=== PATIENT | female | born 1995 | race Caucasian/White ===

== ENCOUNTER 2018-03-05 08:51 | Observation (INO) | payer BC ==
[~2018-03-05] VITALS: Ht 172.7 cm; Wt 85.0 kg
[2018-03-05 08:58] VITALS: BP 122/65; PULSE 84; RESP 18; TEMP 98.1; O2SAT 97
--- NOTE | 2018-03-05 09:14 | PD ---
HPI Chief Complaint: Seizure Time Seen by Provider: 09:03 Travel History International Travel<30 days: No Contact w/Intl Traveler<30days: No Traveled to known affect area: No History of Present Illness HPI 23-year-old female presents with a witnessed tonic-clonic seizure that lasted a couple minutes per her boyfriend where she shook all over this morning at 7 AM. The patient states she does not recall any of the episode. She states about a year ago she had a seizure where she was evaluated in [place] but they did not start her on any medications and she states she did not stay in the hospital. She states she is not on any seizure medicine history is limited as patient does not recall episode but boyfriend is able to tell me she moved her arms and her legs and was less interactive after the episode. FORMERLY [facility], [facility] Past Medical History Narrative Medical 1 prior seizure, migraines ?: Not LMP: 02/07/18 Past Surgical History Surgical History: No Previous Surgery Social History Alcohol Use: No Tobacco Use: No Substance Use: Yes (Marijuana) Allergies-Medications (Allergen,Severity, Reaction): Coded Allergies: No Known Allergies (Verified Allergy, Unknown, 03/05/18) Reported Meds & Prescriptions Reported Meds & Active Scripts Active No Active Prescriptions or Reported Medications Review of Systems Except as stated in HPI: all other systems reviewed are Neg Physical Exam Narrative GENERAL: 23-year-old female in no apparent distress SKIN: Focused skin assessment warm/dry. HEAD: Atraumatic. Normocephalic. EYES: Pupils equal and round. No scleral icterus. No injection or drainage. ENT: No nasal bleeding or discharge. Mucous membranes pink and moist. NECK: Trachea midline. No JVD. CARDIOVASCULAR: Regular rate and rhythm. No murmur appreciated. RESPIRATORY: No accessory muscle use. Clear to auscultation. Breath sounds equal bilaterally. GASTROINTESTINAL: Abdomen soft, non-tender, nondistended. MUSCULOSKELETAL: No obvious deformities. No clubbing. No cyanosis. No edema. NEUROLOGICAL: Awake and alert. No obvious cranial nerve deficits. Motor grossly within normal limits. Normal speech. PSYCHIATRIC: Appropriate mood and affect; insight and judgment normal. Data Data Last Documented VS Vital Signs Date Time Temp Pulse Resp B/P (MAP) Pulse Ox O2 Delivery O2 Flow Rate FiO2 03/05/18 09:04 73 18 97 Room Air 03/05/18 08:58 98.1 122/65 (84) Orders Orders Complete Blood Count With Diff (03/05/18 09:09) Alcohol (Ethanol) (03/05/18 09:09) Drug Screen, Random Urine (03/05/18 09:09) Electrocardiogram (03/05/18 ) Ct Brain W/O Iv Contrast(Rout) (03/05/18 ) Ecg Monitoring (03/05/18 09:09) Iv Access Insert/Monitor (03/05/18 09:09) Oximetry (03/05/18 09:09) Comprehensive Metabolic Panel (03/05/18 09:09) Sodium Chloride 0.9% Flush (Ns Flush) (03/05/18 09:15) Urinalysis - C+S If Indicated (03/05/18 09:09) Lorazepam Inj (Ativan Inj) (03/05/18 10:45) Fosphenytoin Inj (Cerebyx Inj) (03/05/18 10:45) Admit Order (Ed Use Only) (03/05/18 11:12) Labs Laboratory Tests Test 03/05/18 09:10 White Blood Count 7.2 TH/MM3 Red Blood Count 4.22 MIL/MM3 Hemoglobin 13.5 GM/DL Hematocrit 38.9 % Mean Corpuscular Volume 92.3 FL Mean Corpuscular Hemoglobin 31.9 PG Mean Corpuscular Hemoglobin Concent 34.6 % Red Cell Distribution Width 12.7 % Platelet Count 203 TH/MM3 Mean Platelet Volume 8.9 FL Neutrophils (%) (Auto) 66.8 % Lymphocytes (%) (Auto) 21.6 % Monocytes (%) (Auto) 8.1 % Eosinophils (%) (Auto) 2.8 % Basophils (%) (Auto) 0.7 % Neutrophils # (Auto) 4.8 TH/MM3 Lymphocytes # (Auto) 1.5 TH/MM3 Monocytes # (Auto) 0.6 TH/MM3 Eosinophils # (Auto) 0.2 TH/MM3 Basophils # (Auto) 0.1 TH/MM3 CBC Comment DIFF FINAL Differential Comment Blood Urea Nitrogen 11 MG/DL Creatinine 0.87 MG/DL Random Glucose 108 MG/DL Total Protein 7.1 GM/DL Albumin 4.0 GM/DL Calcium Level 8.8 MG/DL Alkaline Phosphatase 40 U/L Aspartate Amino Transf (AST/SGOT) 19 U/L Alanine Aminotransferase (ALT/SGPT) 20 U/L Total Bilirubin 0.8 MG/DL Sodium Level 139 MEQ/L Potassium Level 4.1 MEQ/L Chloride Level 107 MEQ/L Carbon Dioxide Level 20.4 MEQ/L Anion Gap 12 MEQ/L Estimat Glomerular Filtration Rate 81 ML/MIN Ethyl Alcohol Level LESS THAN 3 MG/DL MDM Medical Decision Making Medical Screen Exam Complete: Yes Emergency Medical Condition: Yes Medical Record Reviewed: Yes (Past history confirmed) Interpretation(s) CBC & BMP Diagram 03/05/18 09:10 Total Protein 7.1, Albumin 4.0, Calcium Level 8.8, Alkaline Phosphatase 40 L, Aspartate Amino Transf (AST/SGOT) 19, Alanine Aminotransferase (ALT/SGPT) 20, Total Bilirubin 0.8 Last [address] 03/05/18 0000 Signed Impressions: CONCLUSION: 1. Negative CT Head non contrast. Differential Diagnosis Intracranial, electrolyte abnormality, seizure disorder Narrative Course Will check blood work, imaging and discuss with neurology as second episode she will likely need to be started on seizure medication and need more testing Patient had witnessed tonic-clonic seizure here. She was given 1 mg of Ativan as when we got in the room the seizure had stopped. She will also be loaded with Cerebyx and admitted for further care. Physician Communication Physician Communication dr moore agrees to admit dr estrada states ok with loading with cerebyx and giving ativan, will follow, states needs mri and eeg Diagnosis Primary Impression: Seizure Admitting Information Admitting Physician Requests: Observation Scripts No Active Prescriptions or Reported Meds Emani Duong MD Mar 05, 2018 09:14
[2018-03-05] MEDS ORDERED: SODIUM CHLORIDE 0.9% FLUSH 10 ML FLUSH IVF PRN (09:15)
[2018-03-05 09:33] LABS: AUTOMATED NEUTROPHIL # 4.8 TH/MM3 (1.8-7.7); BASOPHIL # 0.1 TH/MM3 (0-0.2); BASOPHIL % 0.7 % (0.0-2.0); EOSINOPHIL # 0.2 TH/MM3 (0-0.4); EOSINOPHIL % 2.8 % (0.0-4.0); HEMATOCRIT 38.9 % (35.0-46.0); HEMOGLOBIN 13.5 GM/DL (11.6-15.3); LYMPH % 21.6 % (9.0-44.0); LYMPHOCYTE # 1.5 TH/MM3 (1.0-4.8); MEAN CELL VOLUME 92.3 FL (80.0-100.0); MEAN CORPUSCULAR HEMOGLOBIN 31.9 PG (27.0-34.0); MEAN CORPUSCULAR HGB CONC 34.6 % (32.0-36.0); MEAN PLATELET VOLUME 8.9 FL (7.0-11.0); MONO % 8.1 % (0.0-8.0); MONOCYTE # 0.6 TH/MM3 (0-0.9); NEUT % 66.8 % (16.0-70.0); PLATELET COUNT 203 TH/MM3 (150-450); RED BLOOD COUNT 4.22 MIL/MM3 (4.00-5.30); RED CELL DISTRIBUTION WIDTH 12.7 % (11.6-17.2); WHITE BLOOD COUNT 7.2 TH/MM3 (4.0-11.0)
[2018-03-05 09:50] LABS: AST (GOT) 19 U/L (15-37); BICARBONATE 20.4 MEQ/L (21.0-32.0); BLOOD UREA NITROGEN 11 MG/DL (7-18); CALCIUM 8.8 MG/DL (8.5-10.1); CHLORIDE 107 MEQ/L (98-107); CREATININE 0.87 MG/DL (0.50-1.00); GLOMERULAR FILTRATION RATE 81 ML/MIN (>89); GLUCOSE,RANDOM 108 MG/DL (74-106); SODIUM (NA) 139 MEQ/L (136-145)
[2018-03-05 09:51] LABS: ALT (GPT) 20 U/L (10-53)
--- NOTE | 2018-03-05 09:53 | RADRPT ---
EXAM DATE: 03/05/2018 9:50 AM EDT AGE/SEX: 23 years / Female INDICATIONS: Possible seizure today. CLINICAL DATA: This is the patient's initial encounter. Patient reports that signs and symptoms have been present for 1 day and indicates a pain score of 0/10. MEDICAL/SURGICAL HISTORY: None. None. RADIATION DOSE: 56.35 CTDI (mGy) COMPARISON: No prior [place] exams available for comparison. TECHNIQUE: CT of the head without contrast. Using automated exposure control and adjustment of the mA and/or kV according to patient size, radiation dose was kept as low as reasonably achievable to ob tain optimal diagnostic quality images. FINDINGS: Cerebrum: The ventricles are normal for age. No evidence of midline shift, mass lesion, hemorrhage or acute infarction. No extraaxial fluid collections are seen. Posterior Fossa: The cerebellum and brainstem are intact. The 4th ventricle is midline. The cerebe llopontine angle is unremarkable. Extracranial: The visualized portion of the orbits is intact. Skull: The calvaria is intact. No evidence of skull fracture. CONCLUSION: 1. Negative CT Head non contrast. Electronically signed by: Jose Daniel MD 03/05/2018 9:51 AM EDT
[2018-03-05 09:54] LABS: ALKALINE PHOSPHATASE 40 U/L (45-117); TOTAL BILIRUBIN ADULT 0.8 MG/DL (0.2-1.0); TOTAL PROTEIN 7.1 GM/DL (6.4-8.2)
[2018-03-05] MEDS ORDERED: FOSPHENYTOIN INJ 1,000 MGPE in SODIUM CHLORIDE 0.9% INJ 50 ML IV ONE (10:45)
[2018-03-05] MEDS ORDERED: LORazepam 2 MG/ML VIAL IV PUSH ONE (10:45)
[2018-03-05] MEDS ORDERED: GADODIAMIDE PF 287 MG/ML 20 ML VIAL (for RAD MRI) IVCONTRAST ONE ×4 (11:15)
[2018-03-05] MEDS ORDERED: LORazepam 2 MG/ML VIAL IV PUSH PRN (11:45)
--- NOTE | 2018-03-05 11:53 | HHI.HP ---
[facility] Primary Care Physician No Primary Care Physician Admission Diagnosis seizure Diagnoses: (1) Seizure Diagnosis: Principal Chief Complaint: seizures Travel History International Travel<30 Days: No Contact w/Intl Traveler <30 Da: No Traveled to Known Affected Are: No History of Present Illness patient is a 23 y/o female who presented to ER after she had a seizure this morning. she says that she had a seizure last year. she went to the hospital but she wasn't started on any medications. she says that she doesn't recall the incident but her boyfriend who witnesses the seizure says that this morning she suddenly started to have shaking of the whole body which lasted for a couple of minutes.she says that she probably bit her tongue but there was no urine incontinence. while she was being evaluated in ER she had one more episode of seizure for which she received a dose of ativan. at the time of my evaluation she was awake, alert with no significant complaints. Review of Systems Constitutional: DENIES: Fever, Weight loss, Chills, Night Sweats Eyes: DENIES: Blurred vision, Diplopia, Vision loss, Double Vision Ears, nose, mouth, throat: DENIES: Tinnitus, Vertigo, Throat pain, Epistaxis Respiratory: DENIES: Apneas, Cough, Snoring, Wheezing, Hemoptysis, Sputum production, Shortness of breath Cardiovascular: DENIES: Chest pain, Palpitations, Syncope, Dyspnea on Exertion , PND, Lower Extremity Edema, Orthopnea, Claudication Gastrointestinal: DENIES: Abdominal pain, Black stools, Bloody stools, Constipation, Diarrhea, Nausea, Vomiting, Difficulty Swallowing, Anorexia Genitourinary: DENIES: Urinary frequency, Urgency, Hematuria, Dysuria Musculoskeletal: DENIES: Joint pain, Muscle aches, Stiffness, Joint Swelling Integumentary: DENIES: Rash Neurologic: COMPLAINS OF: Seizures, DENIES: Abnormal gait, Headache, Localized weakness, Paresthesias, Speech Problems, Tremor, Poor Balance Psychiatric: DENIES: Anxiety, Confusion, Mood changes, Depression, Hallucinations, Agitation, Suicidal Ideation, Homicidal Ideation, Delusions Past Family Social History Past Medical History seizure Past Surgical History none reported. Reported Medications none. Allergies: Coded Allergies: No Known Allergies (Verified Allergy, Unknown, 03/05/18) Active Ordered Medications Inpatient Medications Fosphenytoin Sodium 1000 mgpe/ Sodium Chloride 70 ml @ 280 mls/hr ONCE ONCE IV Last administered on 03/05/18at 11:02; Start 03/05/18 at 10:45; Stop 03/05/18 at 10:59; Status DC Lorazepam (Ativan Inj) 1 mg ONCE ONCE IV PUSH Last administered on 03/05/18at 10 :59; Start 03/05/18 at 10:45; Stop 03/05/18 at 10:46; Status DC Sodium Chloride (NS Flush) 2 ml UNSCH PRN IVF FLUSH AFTER USING IV ACCESS; Start 03/05/18 at 09:15 Family History no seizure in the family. Social History smokes weed- drinks occasionally. Physical Exam Vital Signs Vital Signs Date Time Temp Pulse Resp B/P (MAP) Pulse Ox O2 Delivery O2 Flow Rate FiO2 03/05/18 09:04 73 18 97 Room Air 03/05/18 08:58 98.1 84 18 122/65 (84) 97 Physical Exam GENERAL: This is a well-nourished, well-developed patient, in no apparent distress. SKIN: No rashes, ecchymoses or lesions. Cool and dry. HEAD: Atraumatic. Normocephalic. No temporal or scalp tenderness. EYES: Pupils equal round and reactive. Extraocular motions intact. No scleral icterus. No injection or drainage. ENT: Nose without bleeding, purulent drainage or septal hematoma. Throat without erythema, tonsillar hypertrophy or exudate. Uvula midline. Airway patent. NECK: Trachea midline. No JVD or lymphadenopathy. Supple, nontender, no meningeal signs. CARDIOVASCULAR: Regular rate and rhythm without murmurs, gallops, or rubs. RESPIRATORY: Clear to auscultation. Breath sounds equal bilaterally. No wheezes , rales, or rhonchi. GASTROINTESTINAL: Abdomen soft, non-tender, nondistended. No hepato-splenomegaly , or palpable masses. No guarding. MUSCULOSKELETAL: Extremities without clubbing, cyanosis, or edema. No joint tenderness, effusion, or edema noted. No calf tenderness. Negative Homans sign bilaterally. NEUROLOGICAL: Awake and alert. Cranial nerves II through XII intact. Motor and sensory grossly within normal limits. Five out of 5 muscle strength in all muscle groups. Normal speech. Laboratory Laboratory Tests Test 03/05/18 09:10 White Blood Count 7.2 Red Blood Count 4.22 Hemoglobin 13.5 Hematocrit 38.9 Mean Corpuscular Volume 92.3 Mean Corpuscular Hemoglobin 31.9 Mean Corpuscular Hemoglobin Concent 34.6 Red Cell Distribution Width 12.7 Platelet Count 203 Mean Platelet Volume 8.9 Neutrophils (%) (Auto) 66.8 Lymphocytes (%) (Auto) 21.6 Monocytes (%) (Auto) 8.1 Eosinophils (%) (Auto) 2.8 Basophils (%) (Auto) 0.7 Neutrophils # (Auto) 4.8 Lymphocytes # (Auto) 1.5 Monocytes # (Auto) 0.6 Eosinophils # (Auto) 0.2 Basophils # (Auto) 0.1 CBC Comment DIFF FINAL Differential Comment Blood Urea Nitrogen 11 Creatinine 0.87 Random Glucose 108 Total Protein 7.1 Albumin 4.0 Calcium Level 8.8 Alkaline Phosphatase 40 Aspartate Amino Transf (AST/SGOT) 19 Alanine Aminotransferase (ALT/SGPT) 20 Total Bilirubin 0.8 Sodium Level 139 Potassium Level 4.1 Chloride Level 107 Carbon Dioxide Level 20.4 Anion Gap 12 Estimat Glomerular Filtration Rate 81 Ethyl Alcohol Level LESS THAN 3 Result Diagram: 03/05/18 0910 03/05/18 0910 Imaging Last Impressions Head CT 03/05/18 0000 Signed Impressions: CONCLUSION: 1. Negative CT Head non contrast. Caprini VTE Risk Assessment Caprini VTE Risk Assessment: No/Low Risk (score <= 1) Caprini Risk Assessment Model Point Value = 1 Point Value = 2 Point Value = 3 Point Value = 5 Age 41-60 Minor surgery BMI > 25 kg/m2 Swollen legs Varicose veins or History of unexplained or recurrent spontaneous Oral contraceptives or hormone replacement Sepsis (< 1 month) Serious lung disease, including pneumonia (< 1 month) Abnormal pulmonary function Acute myocardial infarction Congestive heart failure (< 1 month) History of inflammatory bowel disease Medical patient at bed rest Age 61-74 Arthroscopic surgery Major open surgery (> 45 min) Laparoscopic surgery (> 45 min) Malignancy Confined to bed (> 72 hours) Immobilizing plaster cast Central venous access Age >= 75 History of VTE Family history of VTE Factor V Leiden Prothrombin [id number] Lupus anticoagulant Anticardiolipin antibodies Elevated serum homocysteine Heparin-induced thrombocytopenia Other congenital or acquired thrombophilia Stroke (< 1 month) Elective arthroplasty Hip, pelvis, or leg fracture Acute spinal cord injury (< 1 month) Prophylaxis Regimen Total Risk Factor Score Risk Level Prophylaxis Regimen 0-1 Low Early ambulation 2 Moderate Order ONE of the following: *Sequential Compression Device (SCD) *Heparin 5000 units SQ BID 3-4 Higher Order ONE of the following medications: *Heparin 5000 units SQ TID *Enoxaparin/Lovenox 40 mg SQ daily (WT < 150 kg, CrCl > 30 mL/min) *Enoxaparin/Lovenox 30 mg SQ daily (WT < 150 kg, CrCl > 10-29 mL/min) *Enoxaparin/Lovenox 30 mg SQ BID (WT < 150 kg, CrCl > 30 mL/min) AND/OR *Sequential Compression Device (SCD) 5 or more Highest Order ONE of the following medications: *Heparin 5000 units SQ TID (Preferred with Epidurals) *Enoxaparin/Lovenox 40 mg SQ daily (WT < 150 kg, CrCl > 30 mL/min) *Enoxaparin/Lovenox 30 mg SQ daily (WT < 150 kg, CrCl > 10-29 mL/min) *Enoxaparin/Lovenox 30 mg SQ BID (WT < 150 kg, CrCl > 30 mL/min) AND *Sequential Compression Device (SCD) Assessment and Plan Assessment and Plan A/P - recurrent seizure CT head negative- neuro-checks and seizure precautions- received Fosphenytoin in ER- Ativan as needed- obtain EEG , urine toxicology and consult neurology. Discussed Condition With ER physician, the patient and her boyfriend. Shad Little MD Mar 05, 2018 11:53
[2018-03-05] MEDS: SODIUM CHLOR 0.9% 1000 ML INJ 1,000 ML IV SCH (12:02)
[2018-03-05] MEDS: ACETAMINOPHEN 325 MG TAB PO PRN ×2 (13:18→18:54)
[2018-03-05 14:10] VITALS: BP 118/68; PULSE 80; RESP 18; O2SAT 99
[2018-03-05 16:00] VITALS: BP 117/62; PULSE 68; RESP 20; TEMP 98.2; O2SAT 99
--- NOTE | 2018-03-05 16:41 | MG ---
cc: Tj Luna MD, PhD DATE: 03/05/2018 TEST NUMBER: [id number] TECHNIQUE: This is a 17-channel EEG. DESCRIPTION: Background rhythm reveals a symmetrical alpha rhythm, frequency is 8-9 Hz, amplitude is about 30-40 microvolts. There is some muscle artifact present. No lateralizing features are identified. Photic results in a normal driving response. INTERPRETATION: Normal electroencephalogram. ADDENDUM On review of the EEG, the patient does exhibit episodes of epileptiform discharges occurring over the left hemisphere with phase reversal. This is consistent with a left hemispheric epileptogenic focus. Tj Luna MD, PhD TRANG/JAYLAN , 04:31 PM , 04:40 PM
--- NOTE | 2018-03-05 17:19 | EKG ---
Date Performed: 03/05/2018 Time Performed: 09:39:14 PTAGE: 23 years EKG: Sinus rhythm POSSIBLE RIGHT VENTRICULAR CONDUCTION DELAY BORDERLINE ECG NO PREVIOUS TRACING DOCTOR: Cayden Hall Interpretating Date/Time 03/05/2018 17:17:53
[2018-03-05] MEDS ORDERED: ACETAMIN 325 MG/BUTALBITAL 50 MG/CAFFEINE 40 MG TAB PO PRN (19:00)
--- NOTE | 2018-03-05 19:02 | PD.CONS ---
History of Present Illness Service Neurology Consult Requested By Medical Reason for Consult Seizure Primary Care Physician No Primary Care Physician History of Present Illness 23 y/o female who presented to ER after she had a seizure this morning. she says that she had a seizure last year. Had another witnessed seizure in the ER was given Ativan IV Cerebyx. She denies any recent illness sick contacts sleep deprivation or binge drinking. She says she thinks she has had about 4 seizures in total since last year. She moved here from [place] to work locally. Says her first episode was last year told she was foaming at the mouth and told she had a seizure. She also has been having more anxiety since that seizure episode which she states is not typical for her. aura: of a panic anxiety type feeling. Mild epigastric sensation denies any metallic taste. No history of head trauma or [employer] infection. No family history of seizures. No early-morning myoclonic jerks or ataxia. History of migraine headaches. She believes she could have some for headache. She feels well at present good appetite no focal weakness no vision loss to light reserve is no vertigo. CT brain no acute lesion. Glucose level 108. Ethanol level less than 3. Review of Systems 12 point negative rest as above Past Family Social History Past Medical History seizure Past Surgical History none reported. Reported Medications none. Allergies: Coded Allergies: No Known Allergies (Verified Allergy, Unknown, 03/05/18) Active Ordered Medications Inpatient Medications Fosphenytoin Sodium 1000 mgpe/ Sodium Chloride 70 ml @ 280 mls/hr ONCE ONCE IV Last administered on 03/05/18at 11:02; Start 03/05/18 at 10:45; Stop 03/05/18 at 10:59; Status DC Lorazepam (Ativan Inj) 1 mg ONCE ONCE IV PUSH Last administered on 03/05/18at 10 :59; Start 03/05/18 at 10:45; Stop 03/05/18 at 10:46; Status DC Sodium Chloride (NS Flush) 2 ml UNSCH PRN IVF FLUSH AFTER USING IV ACCESS; Start 03/05/18 at 09:15 Family History no seizure in the family. Social History Denies any tobacco alcohol use or binge drinking. Employed Review of Systems All other ROS: ROS reviewed as documented in chart Past Family Social History Allergies: Coded Allergies: No Known Allergies (Verified Allergy, Unknown, 03/05/18) Active Ordered Medications Current Medications Medications (Trade) Dose Ordered Sig/Lulú Route Start Time Stop Time Status Last Admin (NS Flush) 2 ml UNSCH PRN IVF 03/05/18 09:15 (Ativan Inj) 1 mg Q15M PRN IV PUSH 03/05/18 11:45 Sodium Chloride 1,000 ml @ 100 mls/hr Q10H IV 03/05/18 11:45 03/05/18 12:02 (Tylenol) 650 mg Q4H PRN PO 03/05/18 11:45 03/05/18 13:18 Exam I&O / VS 03/05/18 03/05/18 03/06/18 15:00 23:00 07:00 Intake Total 50 ml Balance 50 ml Intake IV Total 50 ml # Voids 3 Vital Signs Date Time Temp Pulse Resp B/P (MAP) Pulse Ox O2 Delivery O2 Flow Rate FiO2 03/05/18 16:00 98.2 68 20 117/62 (80) 99 03/05/18 14:12 03/05/18 14:10 80 18 118/68 (85) 99 Room Air 03/05/18 09:04 73 18 97 Room Air 03/05/18 08:58 98.1 84 18 122/65 (84) 97 General: Alert and Oriented, No acute distress Eye: EOMI Respiratory: Non-labored respirations Cardiology: No murmur Neurologic: Alert, Oriented, Normal sensory, Normal motor, No focal defects, CN II-XII intact, Normal DTR's Psychiatric: Cooperative, Appropriate mood & affect, Normal judgement Review/Management Diagnosis/Plan: (1) Seizure disorder, complex partial ICD Codes: G40.209 - Localization-related (focal) (partial) symptomatic epilepsy and epileptic syndromes with complex partial seizures, not intractable , without status epilepticus Status: Acute Plan: Recurrent seizures, new adult onset Based on her aura symptoms, I suspect she may have complex partial seizures possibly emanating from the temporal lobe EEG report is normal Recommendations MRI brain We will start Topamax 25 mg p.o. twice daily can be titrated up to 50 twice daily and so forth to help seizure control in addition to migraine headaches. Denies any history of nephrolithiasis or . Discussed neural tube defects with the patient Hydration. Routine sleep-wake cycle Discharge planning in the a.m. no further episodes (2) Migraine ICD Codes: G43.909 - Migraine, unspecified, not intractable, without status migrainosus Status: Chronic (3) Anxiety ICD Codes: F41.9 - Anxiety disorder, unspecified Status: Chronic Problem Qualifiers (1) Seizure disorder, complex partial: (2) Migraine: Oziel Jenkins MD Mar 05, 2018 19:02
[2018-03-05] MEDS: TOPIRAMATE 25 MG TAB PO SCH (20:26)
--- NOTE | 2018-03-05 21:44 | RADRPT ---
EXAM DATE: 03/05/2018 9:39 PM EDT AGE/SEX: 23 years / Female INDICATIONS: Epilepsy. Seizure CLINICAL DATA: This is the patient's initial encounter. Patient reports that signs and symptoms have been present for 1 day and indicates a pain score of 0/10. MEDICAL/SURGICAL HISTORY: . Migraines None. COMPARISON: [facility], CT BRAIN W/O CONTRAST, 03/05/2018. . TECHNIQUE: Multiplanar, multisequence examination of the brain was performed without and with 17 ml O mniscan (gadodiamide) contrast as a single exam dose. FINDINGS: Cerebrum: The ventricles are normal for age. No evidence of midline shift, mass lesion, hemorrhage or acute infarction. No extraaxial fluid collections are seen. The pituitary gland and suprasellar cistern are normal in configuration. White Matter: No significant signal abnormalities are seen in the white matter. Posterior Fossa: The cerebellum and brainstem are intact. The 4th ventricle is midline. The cerebel lopontine angle is unremarkable. The cerebellar tonsils are normal in position. Diffusion Imaging: No focal areas of restricted diffusion are seen. No evidence of acute infarction . Extracranial: The visualized portions of the orbits and paranasal sinuses are unremarkable. Post Contrast: No abnormal areas of parenchymal or dural enhancement. No evidence of blood-brain ba rrier breakdown. CONCLUSION: 1. Negative MR Brain with and without contrast. Electronically signed by: Demario Sepulveda MD 03/05/2018 9:43 PM EDT
[2018-03-06] VITALS: BP 108/70; PULSE 74; RESP 20; TEMP 98; O2SAT 99
[2018-03-06 04:00] VITALS: BP 111/80; PULSE 63; RESP 20; TEMP 98.4; O2SAT 100
[2018-03-06] MEDS: SODIUM CHLOR 0.9% 1000 ML INJ 1,000 ML IV SCH ×2 (04:16→07:45)
[2018-03-06 07:31] VITALS: BP 104/76; PULSE 77; RESP 18; TEMP 99.1; O2SAT 96
[2018-03-06] MEDS: TOPIRAMATE 25 MG TAB PO SCH (07:53)
--- NOTE | 2018-03-06 09:27 | HHI.PR ---
Review/Management Diagnosis/Plan: (1) Seizure disorder, complex partial ICD Codes: G40.209 - Localization-related (focal) (partial) symptomatic epilepsy and epileptic syndromes with complex partial seizures, not intractable , without status epilepticus Status: Acute Plan: Recurrent seizures, new adult onset Based on her aura symptoms, I suspect she may have complex partial seizures possibly emanating from the temporal lobe EEG report is normal Recommendations MRI brain; normal Patient doing well no further seizures Has been started on Topamax 25 mg p.o. twice daily can be titrated up to 50 twice daily and so forth to help seizure control in addition to migraine headaches. Denies any history of nephrolithiasis or . Discussed neural tube defects with the patient Hydration. Routine sleep-wake cycle Discharge planning today Follow-up outpatient setting in 1-2 weeks No driving, swimming, climbing heights, operating heavy machinery for at least 6 months of being seizure spell free (2) Migraine ICD Codes: G43.909 - Migraine, unspecified, not intractable, without status migrainosus Status: Chronic (3) Anxiety ICD Codes: F41.9 - Anxiety disorder, unspecified Status: Chronic Subjective Subjective Comments No acute events reported No headache No chest pain No dyspnea Active Medications Current Medications Medications (Trade) Dose Ordered Sig/Lulú Route Start Time Stop Time Status Last Admin (NS Flush) 2 ml UNSCH PRN IVF 03/05/18 09:15 (Ativan Inj) 1 mg Q15M PRN IV PUSH 03/05/18 11:45 Sodium Chloride 1,000 ml @ 100 mls/hr Q10H IV 03/05/18 11:45 03/06/18 04:16 (Tylenol) 650 mg Q4H PRN PO 03/05/18 11:45 03/05/18 18:54 (Topamax) 25 mg Q12H PO 03/05/18 19:00 03/06/18 07:53 (Fioricet 325-50-40) 1 tab Q8H PRN PO 03/05/18 19:00 03/05/18 21:47 Allergies Allergies Coded Allergies No Known Allergies (Verified Allergy, Unknown, 03/05/18) Review of Systems All other ROS: ROS reviewed as documented in chart Exam I&O / VS Vital Signs Date Time Temp Pulse Resp B/P (MAP) Pulse Ox O2 Delivery O2 Flow Rate FiO2 03/06/18 07:31 99.1 77 18 104/76 (85) 96 03/06/18 04:00 98.4 63 20 111/80 (90) 100 03/06/18 00:00 98.0 74 20 108/70 (83) 99 03/05/18 16:00 98.2 68 20 117/62 (80) 99 03/05/18 14:12 03/05/18 14:10 80 18 118/68 (85) 99 Room Air General: Alert and Oriented, No acute distress Eye: EOMI Respiratory: Non-labored respirations Cardiology: No murmur Neurologic: Alert, Oriented, Normal sensory, Normal motor, No focal defects, CN II-XII intact, Normal DTR's Psychiatric: Cooperative, Appropriate mood & affect, Normal judgement Objective Micro and Labs Laboratory Tests Test 03/05/18 21:32 Erythrocyte Sedimentation Rate 15 Vitamin B12 Level 522 Thyroid Stimulating Hormone 3rd Gen 1.720 Problem Qualifiers (1) Seizure disorder, complex partial: (2) Migraine: Oziel Jenkins MD Mar 06, 2018 09:27
[2018-03-06 12:00] VITALS: BP 128/71; PULSE 87; RESP 20; TEMP 99.4; O2SAT 98
[2018-03-06] MEDS ORDERED: TOPI25 PO (13:32)
--- NOTE | 2018-03-06 13:32 | HHI.DCPOC ---
Discharge Care Plan Diagnosis: (1) Seizure disorder, complex partial Goals to Promote Your Health * To prevent worsening of your condition and complications * To maintain your health at the optimal level Directions to Meet Your Goals Take your medications as prescribed Follow your dietary instruction Follow activity as directed Keep your appointments as scheduled Take your immunizations and boosters as scheduled If your symptoms worsen call your PCP, if no PCP go to Urgent Care Center or Emergency Room Smoking is Dangerous to Your Health. Avoid second hand smoke Call the 24-hour hour crisis hotline for domestic abuse at Chris Shin MD Mar 06, 2018 13:32
--- NOTE | 2018-03-06 13:38 | HHI.PR ---
Subjective Remarks Follow up seizure. The patient has had no further episodes of seizure activity. She states that she feels back to her normal self. Wants to go home today. Objective Vitals Vital Signs Date Time Temp Pulse Resp B/P (MAP) Pulse Ox O2 Delivery O2 Flow Rate FiO2 03/06/18 12:00 99.4 87 20 128/71 (90) 98 03/06/18 07:31 99.1 77 18 104/76 (85) 96 03/06/18 04:00 98.4 63 20 111/80 (90) 100 03/06/18 00:00 98.0 74 20 108/70 (83) 99 03/05/18 16:00 98.2 68 20 117/62 (80) 99 03/05/18 14:12 03/05/18 14:10 80 18 118/68 (85) 99 Room Air I/O 03/05/18 03/05/18 03/05/18 03/06/18 03/06/18 03/06/18 07:00 15:00 23:00 07:00 15:00 23:00 Intake Total 50 ml 480 ml Balance 50 ml 480 ml Intake Oral 480 ml IV Total 50 ml # Voids 3 3 Result Diagram: 03/05/18 0910 03/05/18 0910 Imaging Last Impressions Head CT 03/05/18 0000 Signed Impressions: CONCLUSION: 1. Negative CT Head non contrast. Brain MRI 03/05/18 0000 Signed Impressions: CONCLUSION: 1. Negative MR Brain with and without contrast. Objective Remarks Examined in the presence of the nurse. General: No acute distress. Heart: Regular rate and rhythm. No murmur. Lungs: Clear to auscultation bilaterally. No wheezes, rales, or rhonchi. Breathing is nonlabored. Abdomen: Soft, nontender, nondistended. Extremities: No lower extremity edema. Psych: Alert and oriented. Neuro: Normal speech. No focal deficits noted. Procedures None Urinary Catheter: No Vascular Central Line Catheter: No A/P Problem List: (1) Seizure ICD Code: R56.9 - Unspecified convulsions Assessment and Plan 1. Seizure disorder: Appreciate neurology recommendations. Discussed with Dr. Jenkins. Started on Topamax. Urine drug screen and urinalysis are pending. Beta hCG ordered. 2. Marijuana use: Patient admits to daily marijuana use for control of migraines. She was counseled and advised to discuss this further with neurology. Discharge Planning Discharge home once results are available for beta-hCG, urine drug screen, and urinalysis. Discharge in stable condition. Follow-up with neurology, PCP. Regular diet. Avoid driving, swimming, climbing heights, operating heavy machinery for at least 6 months from last seizure. Chris Shin MD Mar 06, 2018 13:38
[2018-03-06 14:15] LABS: BACTERIA, URINE MOD /hpf; BILIRUBIN, URINE NEG (NEG); BLOOD, URINE SMALL (NEG); GLUCOSE,URINE NEG (NEG); KETONE, URINE 10 mg/dL (NEG); MUCUS URINE FEW /lpf (OCC); NITRITE,URINE NEG (NEG); PH, URINE 7.5 (5.0-8.5); SQUAMOUS EPITHELIAL CELL URINE 1 /hpf (0-5); URINE COLOR LIGHT-YELLOW (YELLW/STRAW); URINE LEUKOCYTE ESTERASE NEG (NEG)
== END 2018-03-06 16:39 | disposition home or self-care (01) ==
LOC: NEPE 08:51 → NEDA 11:14 → NEPGCP 14:27
PROVIDERS: ADMIT Family Medicine; ATTEND Family Medicine
DX: G40.209 Localization-related (focal) (partial) symptomatic epilepsy and epileptic syndromes with complex partial seizures, not intractable, without status epilepticus (principal); G43.909 Migraine, unspecified, not intractable, without status migrainosus; R94.31 Abnormal electrocardiogram [ECG] [EKG]; R82.79 Other abnormal findings on microbiological examination of urine; F12.90 Cannabis use, unspecified, uncomplicated; F41.9 Anxiety disorder, unspecified
CPT/HCPCS: 70450; 70553; 80053; 80307; 81001; 82607; 84443; 84703; 85025; 85652; 86038; 87086; 93005; 95819; 96361; 96365; 96375; 96376; 99285; A9579; G0378; J2060; J7030; Q2009